=== PATIENT | male | born 1960 | race Caucasian/White ===

== ENCOUNTER 2019-06-26 19:34 | Emergency (ER) | payer BC, SELFPAY ==
[2019-06-26 19:34] VITALS: BP 160/77; PULSE 76; RESP 18; TEMP 37; O2SAT 100; BMI 27.9
[2019-06-26] MEDS: 0.9% Normal Saline 1,000 ML 999 ML IV ×2 (21:01→21:02)
--- NOTE | 2019-06-26 21:10 | ED.VIS.GEN ---
History of Present Illness Chief Complaint: Hyperglycemia Informant: Patient Onset: Today Narrative: Patient checked his sugar today was 566. History of diabetes on metformin 500 mg twice a day. Reported started on prednisone and doxycycline from urgent care 4 days ago unclear on dosing due to nonspecific rash. States he was looking for mushrooms prior to symptoms occurring. Itching therefore went to urgent care. States symptoms are improving. Today noted increasing thirst and urine frequency therefore checked his sugars typically does not check them. No fevers chest pains or difficulty breathing. No history of heart failure. Past Medical History - Allergies and Home Meds Allergies/Adverse Reactions: Allergies Penicillins Allergy (Verified 06/26/19 19:36) Unknown codeine Adverse Reaction (Verified 06/26/19 19:36) Nausea Primary Care Physician: Eric Levy DO [Primary Care Provider] - Past Medical History: - - Diabetes Surgical History: no surgical history Smoking Status: Former smoker Review of Systems General: Denies: Chills, Fever, Sweats Eyes: Denies: Visual changes - bilaterally, Diplopia ENT: Denies: Rhinorrhea, Sore throat Cardiovascular: Denies: Chest pain, Palpitations Respiratory: Denies: Dyspnea, Cough, Dyspnea on exertion Gastrointestinal: Denies: Abdominal pain, Nausea, Vomiting, Diarrhea, Melena, Hematochezia Genitourinary: Reports: Frequency. Denies: Dysuria, Hematuria Musculoskeletal: Denies: Back pain, Extremity Pain Skin: Denies: Rash, Wounds Neurological: Denies: Headache, Weakness, Numbness Endocrine: Reports: Polyuria, Polydipsia Physical Exam Vital Signs/Narrative: Vital Signs Temp Pulse Resp BP Pulse Ox 06/26/19 19:34 98.6 F 76 18 160/77 H 100 Inital Vital Signs reviewed: Yes General: Well nourished, Well developed, No Acute Distress Head: Normocephalic, Atraumatic Eyes: Perrl, EOMI ENT: Moist mucous membranes, No rhinorrhea Neck: Supple, Nontender Cardiovascular: Regular rate, Regular rhythm, No murmurs Respiratory: No distress, CTA bilaterally, Chest nontender Abdomen: Soft, Nontender, Nondistended, Normal bowel sounds Back: Nontender, Normal Inspection Extremities: Nontender, No edema Skin: Normal color, No rash Neurological: Alert, Oriented x3, Cranial nerves II-XII grossly intact, Normal Strength, Normal Sensation Psychological: Normal affect, Normal Mood Diagnostic/Tx/Re-eval Abnormal Lab Results 06/26/19 06/26/19 06/26/19 19:42 19:42 20:21 WBC 8.9 RBC 5.05 Hgb 15.2 Hct 45.6 MCV 90.3 MCH 30.1 MCHC 33.3 RDW Std Deviation 39.7 RDW Coeff of Raul 12.1 Plt Count 263 MPV 11.2 Immature Gran % (Auto) 1.000 H Neut % (Auto) 62.5 Lymph % (Auto) 29.7 [place] % (Auto) 5.3 Eos % (Auto) 0.9 Baso % (Auto) 0.6 Absolute Neuts (auto) 5.6 Absolute Lymphs (auto) 2.65 Nucleated RBC % 0 Sodium 129 L Potassium 4.6 Chloride 91 L Carbon Dioxide 30.0 Anion Gap 8 BUN 38 H Creatinine 1.58 H Estim Creat Clear Calc 52.62 Est GFR (MDRD) Af Amer 58 L Est GFR (MDRD) Non-Af 48 L BUN/Creatinine Ratio 24.1 H Glucose 565 H* Calcium 9.1 Urine Color Urine Clarity Urine pH Ur Specific [place] Urine Protein Urine Glucose (UA) Urine Ketones Urine Occult Blood Urine Nitrite Urine Bilirubin Urine Urobilinogen Ur Leukocyte Esterase Urine RBC Urine WBC Ur Squamous Epith Cells Urine Bacteria Urine Mucus Acetone Level POC Glucose 483 H* 06/26/19 06/26/19 06/26/19 21:00 21:30 22:39 WBC RBC Hgb Hct MCV MCH MCHC RDW Std Deviation RDW Coeff of Raul Plt Count MPV Immature Gran % (Auto) Neut % (Auto) Lymph % (Auto) [place] % (Auto) Eos % (Auto) Baso % (Auto) Absolute Neuts (auto) Absolute Lymphs (auto) Nucleated RBC % Sodium 135 L Potassium 4.4 Chloride 101 Carbon Dioxide 27.0 Anion Gap 7 BUN 32 H Creatinine 1.26 Estim Creat Clear Calc 65.98 Est GFR (MDRD) Af Amer 75 Est GFR (MDRD) Non-Af 62 BUN/Creatinine Ratio 25.4 H Glucose 376 H Calcium 7.7 L Urine Color Yellow Urine Clarity Clear Urine pH 5.0 Ur Specific [place] 1.015 Urine Protein Negative Urine Glucose (UA) 1000 H Urine Ketones 50 H Urine Occult Blood Negative Urine Nitrite Negative Urine Bilirubin Negative Urine Urobilinogen Normal Ur Leukocyte Esterase Negative Urine RBC 0 SEEN Urine WBC 0 SEEN Ur Squamous Epith Cells 0 SEEN Urine Bacteria 0 SEEN Urine Mucus 0 SEEN Acetone Level NEGATIVE POC Glucose - Medical Decision Making Nontoxic. Sugars in the 500s given 2 L of fluid. DKA rule out was negative he was hyperglycemic, was given 10 units of insulin. Recheck glucose in the 370s. He will stop his steroids due to low suspicion for contact dermatitis. He will finish his doxycycline. He will monitor his carb intake, he will check his sugars and follow-up with his PCP. Urine was negative for infection. All questions were answered. ED Disposition - Plan for ED Patient: Disposition: Home or Assisted Living Diagnosis: Hyperglycemia Referrals: Eric Levy, [Primary Care Provider] - 3-5 Days Additional Instructions: Stop your prednisone, monitor your glucose, follow-up with your doctor.
[2019-06-26 21:14] LABS: Absolute Lymphocyte Count 2.65 X10^3/uL (0.83-4.51); Absolute Neutrophil Count 5.6 X10^3/uL (2.0-7.7); Basophil# 0.05 X10^3/uL; Basophil% 0.6 % (0-1); Eosinophil# 0.08 X10^3/uL; Eosinophils% 0.9 % (0-5); Hematocrit 45.6 % (40-54); Hemoglobin 15.2 g/dL (13.0-16.5); Lymphocyte # 2.65 X10^3/ul (4.0); Lymphocyte % 29.7 % (19-41); Mean Corp Hgb Conc 33.3 g/dL (32-36); Mean Corpuscular Hgb 30.1 pg (27.0-32.0); Mean Corpuscular Volume 90.3 fL (80-94); Mean Platelet Vol. 11.2 fl (6.2-12.0); Monocyte# 0.47 X10^3/uL; Monocyte% 5.3 % (0-10); NRBC Flagged by Analyzer 0 % (0-5); Neutrophil # 5.59 X10^3/uL (2.7-7.7); Neutrophil % 62.5 % (47-70); Platelet Count 263 K/mm3 (150-450); RBC Distribution Width CV 12.1 % (11.6-14.6); RBC Distribution Width SD 39.7 fl (35.1-43.9); Red Blood Count 5.05 M/mm3 (4.6-6.2); White Blood Count 8.9 K/mm3 (4.4-11.0)
[2019-06-26 21:16] LABS: Bedside Glucose 483 mg/dL (70-110)
[2019-06-26 21:33] LABS: Anion Gap 8 (5-15); BUN 38 mg/dL (7-18); BUN/Creat Ratio 24.1 RATIO (10-20); Calcium,Total 9.1 mg/dL (8.5-10.1); Chloride 91 mmol/L (98-107); Creatinine, Serum 1.58 mg/dL (0.70-1.30); EST Glomerular Filtration Rate 48 mL/min (>60); Est Glom Filt Rate - Afr Amer 58 mL/min (>60); Estimated Creatinine Clearance 52.62 ml/min; Glucose 565 mg/dL (74-106); Potassium 4.6 mmol/L (3.5-5.1); Sodium Level 129 mmol/L (136-145)
[2019-06-26 21:42] LABS: Bacteria 0 SEEN /hpf (None Seen); Mucous, Urine 0 SEEN /hpf (<or=2+); Red Blood Cells-Urine 0 SEEN /hpf (0-5); Squamous Epithelial Cells - UA 0 SEEN /hpf (0-5); White Blood Cells 0 SEEN /hpf (0-5)
[2019-06-26 21:53] LABS: Color, Urine Yellow (Yellow); Glucose, Dipstick 1000 mg/dl (Normal); Ketone-Dipstick 50 mg/dl (Negative); Leukocyte Esterase-Dipstick Negative /ul (Negative); Nitrite-Dipstick Negative (Negative); Occult Blood-Urine Negative /ul (Negative); Protein-Dipstick Negative (Negative); Specific Gravity, Urine 1.015 (1.002-1.030); Urine Bilirubin Dipstick Negative (Negative); Urine Clarity Clear (Clear); Urine Urobilinogen Normal (Normal)
[2019-06-26] MEDS: Insulin Lispro 100 UNIT/ML INSULN.PEN 10 UNIT SC (22:31)
[2019-06-26 23:01] VITALS: BP 135/94; PULSE 65; RESP 18; O2SAT 98
[2019-06-26 23:07] LABS: Anion Gap 7 (5-15); BUN 32 mg/dL (7-18); BUN/Creat Ratio 25.4 RATIO (10-20); Calcium,Total 7.7 mg/dL (8.5-10.1); Chloride 101 mmol/L (98-107); Creatinine, Serum 1.26 mg/dL (0.70-1.30); EST Glomerular Filtration Rate 62 mL/min (>60); Est Glom Filt Rate - Afr Amer 75 mL/min (>60); Estimated Creatinine Clearance 65.98 ml/min; Glucose 376 mg/dL (74-106); Potassium 4.4 mmol/L (3.5-5.1); Sodium Level 135 mmol/L (136-145)
[2019-06-26 23:20] LABS: Bedside Glucose 339 mg/dL (70-110)
[2019-06-26 23:21] VITALS: PULSE 65; RESP 16; O2SAT 100
== END 2019-06-26 23:21 | disposition home or self-care (01) ==
PROVIDERS: Emergency Provider Emergency Medicine; PCP Student in an Organized Health Care Education/Training Program
DX: E11.65 Type 2 diabetes mellitus with hyperglycemia (principal); Z79.84 Long term (current) use of oral hypoglycemic drugs; Z87.891 Personal history of nicotine dependence
CPT/HCPCS: 80048; 81001; 82009; 82962; 85025; 96360; 96361; 99283; J7030; A4216

== ENCOUNTER 2020-12-25 12:23 | Emergency (ER) | payer BC, SELFPAY ==
[2020-12-25 12:23] VITALS: BP 163/112; PULSE 83; RESP 16; TEMP 36.1; O2SAT 100; BMI 27.4
[2020-12-25 12:36] LABS: Mucous, Urine 0 SEEN /hpf (<or=2+); White Blood Cells 0 SEEN /hpf (0-5)
[2020-12-25 12:57] LABS: Color, Urine Yellow (Yellow); Glucose, Dipstick Normal (Normal); Ketone-Dipstick 5 mg/dl (Negative); Leukocyte Esterase-Dipstick Negative /ul (Negative); Nitrite-Dipstick Negative (Negative); Occult Blood-Urine 250 /ul (Negative); Protein-Dipstick 30 mg/dl (Negative); Specific Gravity, Urine 1.025 (1.002-1.030); Urine Bilirubin Dipstick Negative (Negative); Urine Clarity Sl. Cloudy (Clear); Urine Urobilinogen Normal (Normal)
[2020-12-25 13:03] LABS: Bacteria 1+ /hpf (None Seen); Red Blood Cells-Urine 25-50 SEEN /hpf (0-5); Squamous Epithelial Cells - UA 0-5 SEEN /hpf (0-5)
--- NOTE | 2020-12-25 14:26 | CT_ITS ---
STUDY: CT ABDOMEN AND PELVIS WITHOUT CONTRAST REASON FOR EXAM: Male, 60 years old. Right lower quadrant pain. RADIATION DOSAGE (If Supplied By Facility): CTDIvol = ( 11.32 ) mGy, DLP = ( 582.56 ) mGycm TECHNIQUE: Transaxial images were obtained from the dome of the diaphragm to the symphysis pubis without oral contrast, and without intravenous contrast. Sagittal and coronal images were reconstructed. Individualized dose optimization techniques were used for this CT. COMPARISON: Comparison is made with prior study dated 05/12/2013. FINDINGS: The visualized lung bases are unremarkable. The visualized portions of the heart are within normal limits. There is decreased attenuation of the liver consistent with steatosis. Normal gallbladder and extrahepatic biliary system. Normal spleen. Normal pancreas. Normal bilateral adrenal glands. 2 mm nonobstructive calculus in the lower pole calyx of the right kidney. Mild degree of right hydronephrosis with right perinephric and periureteric stranding. There is evidence of a 4 mm calculus at the base of the bladder posteriorly suggestive of recently passed right ureteral calculus. Normal left kidney. Normal visualized stomach. Normal small intestine. There are multiple colonic diverticula consistent with diverticulosis. The appendix is visualized and appears normal. There is scattered atherosclerotic calcification of the abdominal aorta and its major visceral branches, without a demonstrated aneurysm. Normal inferior vena cava. Normal retroperitoneum. Normal urinary bladder. Normal abdominal wall. There are degenerative changes of the visualized lumbar spine. CT/Abdomen/Pelvis without Cont IMPRESSION: Findings suggestive of recently passed 4 mm calculus from the right ureter. The calculus is seen along the dependent portion of the urinary bladder. Fatty infiltration of the liver. Sigmoid diverticulosis. Electronically Signed: Jameel Cummings MD at 15:23 EST , Service support ,
[2020-12-25] MEDS: 0.9% Normal Saline 1,000 ML 1000 ML IV (14:44)
[2020-12-25] MEDS: Morphine 4 MG/ML Syringe IV (14:44)
[2020-12-25] MEDS: Ondansetron 4 MG/2 ML Vial IV (14:45)
[2020-12-25 14:46] LABS: Absolute Lymphocyte Count 1.26 X10^3/uL (0.83-4.51); Absolute Neutrophil Count 4.8 X10^3/uL (2.0-7.7); Basophil# 0.03 X10^3/uL; Basophil% 0.5 % (0-1); Eosinophil# 0.08 X10^3/uL; Eosinophils% 1.2 % (0-5); Hematocrit 42.2 % (40-54); Hemoglobin 13.9 g/dL (13.0-16.5); Lymphocyte # 1.26 X10^3/ul (0.83-4.51); Lymphocyte % 19.2 % (19-41); Mean Corp Hgb Conc 32.9 g/dL (32-36); Mean Corpuscular Hgb 30.2 pg (27.0-32.0); Mean Corpuscular Volume 91.7 fL (80-94); Mean Platelet Vol. 10.4 fl (6.2-12.0); Monocyte# 0.39 X10^3/uL; Monocyte% 5.9 % (0-10); NRBC Flagged by Analyzer 0 % (0-5); Neutrophil # 4.78 X10^3/uL (2.7-7.7); Neutrophil % 72.9 % (47-70); Platelet Count 187 K/mm3 (150-450); RBC Distribution Width CV 12.8 % (11.6-14.6); RBC Distribution Width SD 42.8 fl (35.1-43.9); White Blood Count 6.6 K/mm3 (4.4-11.0)
[2020-12-25 14:55] LABS: Anion Gap 6 (5-15); BUN 17 mg/dL (7-18); BUN/Creat Ratio 14.3 RATIO (10-20); Calcium,Total 9.1 mg/dL (8.5-10.1); Chloride 104 mmol/L (98-107); Creatinine, Serum 1.19 mg/dL (0.70-1.30); EST Glomerular Filtration Rate 66 mL/min (>60); Est Glom Filt Rate - Afr Amer 80 mL/min (>60); Estimated Creatinine Clearance 70.31 ml/min; Glucose 191 mg/dL (74-106); Potassium 4.3 mmol/L (3.5-5.1); Sodium Level 137 mmol/L (136-145)
--- NOTE | 2020-12-25 15:57 | EX.ED.DYSGE1 ---
HPI History of Present Illness Chief Complaint: Complaint Informant: patient Narrative Narrative: Patient is with right flank pain. It started about 3:00 this morning. He works third shift and he was already awake. He had sudden onset of pain. Occasionally has radiated toward his testicle. He did have some blood in his urine. He has a history of kidney stones. He does not know if he is ever had diverticulitis. He had nausea but no vomiting. No fevers or chills. Nothing specifically made this better or worse. [facility] Medical History (Updated 12/25/20 @ 16:[address] Mg Simpson MD) HTN (hypertension) Kidney stone Home Medications metformin 500 mg PO BIDCM 05/14/13 [History Last Taken Unknown] alprazolam 0.5 mg PO QHS 06/26/19 [History Last Taken Unknown] doxycycline monohydrate 100 mg PO BID 06/26/19 [History Last Taken Unknown] prednisone 20 mg PO DAILY 06/26/19 [History Last Taken Unknown] oxycodone-acetaminophen [Percocet] 1 tab PO Q6H PRN 3 Days #10 tab 12/25/20 [Rx Last Taken Unknown] Allergy/AdvReac Type Severity Reaction Status Date / Time Penicillins Allergy Unknown Verified 12/25/20 12:25 codeine AdvReac Nausea Verified 12/25/20 12:25 Social History Smoking Status: Unknown if ever smoked ROS ROS ED Constitutional Constitutional ED: Denies fever(s) ENT ENT ED: Denies ear pain, rhinorrhea or sore throat Cardiovascular Cardiovascular: Denies chest pain Respiratory/Chest Respiratory/Chest: Denies cough or dyspnea Gastrointestinal Gastrointestinal: Denies abdominal pain, nausea or vomiting Genitourinary Genitourinary ED: Reports hematuria; Denies dysuria Musculoskeletal Musculoskeletal: Reports back pain; Denies arthralgias, myalgias or neck pain Integumentary Denies abscess or rash Neurologic Neurologic: Denies headache(s), paresthesias or weakness Endocrine Endocrinology: Denies polydipsia or polyuria Allergic/Immunologic Allergic/Immunologic ED: Denies urticaria EXAM Physical Exam Const Vital Signs: 12/25/20 12:23 Temperature 97 F L Temperature Source Temporal Pulse Rate 83 Respiratory Rate 16 Blood Pressure 163/112 H Blood Pressure Mean 129 Pulse Ox 100 Oxygen Delivery Method Room Air Patient does uncomfortable. He tends to pace around the room. Positive well nourished and well developed General Appearance ED: well developed and NAD HEENT Negative for trauma Eyes General Eye ED: Negative for pale conjunctiva Neck no JVD Chest Wall inspection of chest normal Resp normal respiratory effort Cardio regular rate and regular rhythm GI normal to inspection, nondistended, normoactive bowel sounds, non-tender and non-distended Palpation: soft Narrative: No testicular enlargement or tenderness. No inguinal hernia. Bladder / Kidney Exam: other Back/Spine Back/Spine Narrative: Mild Right CVA tenderness. General Back: CVA tenderness Extremity normal to inspection Neuro Sensorium / Orientation: alert Psych mental status grossly normal Skin no rashes or lesions noted and no wounds Skin Narrative: No vesicles seen. MDM MDM MDM Narrative Medical decision making narrative: Blood shows normal CBC. Electrolytes are normal other than mild elevation of his glucose. Urine shows red cells but no sign of infection. His CAT scan shows right-sided hydronephrosis with a recently passed stone in the bladder. I rechecked the patient. He feels quite a bit better. I suspect he will still have some intermittent pain. He states he has passed large kidney stones on his own before. I will get him home on a few pills of pain meds. At this point, I do not think Flomax is going to make a difference. I see no indication for antibiotics. If he has worsening pain, inability to urinate, fevers or other concerns he should return. Lab Data Attestation: I reviewed the patient's lab results. Labs: Laboratory Results - last 24 hr 12/25/20 12/25/20 12/25/20 12:30 13:50 13:50 WBC 6.6 RBC 4.60 Hgb 13.9 Hct 42.2 MCV 91.7 MCH 30.2 MCHC 32.9 RDW Std Deviation 42.8 RDW Coeff of Raul 12.8 Plt Count 187 MPV 10.4 Immature Gran % (Auto) 0.300 Neut % (Auto) 72.9 H Lymph % (Auto) 19.2 [place] % (Auto) 5.9 Eos % (Auto) 1.2 Baso % (Auto) 0.5 Absolute Neuts (auto) 4.8 Absolute Lymphs (auto) 1.26 Nucleated RBC % 0 Sodium 137 Potassium 4.3 Chloride 104 Carbon Dioxide 27.0 Anion Gap 6 BUN 17 Creatinine 1.19 Estim Creat Clear Calc 70.31 Est GFR (MDRD) Af Amer 80 Est GFR (MDRD) Non-Af 66 BUN/Creatinine Ratio 14.3 Glucose 191 H Calcium 9.1 Urine Color Yellow Urine Clarity Sl. Cloudy Urine pH 5.0 Ur Specific [place] 1.025 Urine Protein 30 H Urine Glucose (UA) Normal Urine Ketones 5 H Urine Occult Blood 250 H Urine Nitrite Negative Urine Bilirubin Negative Urine Urobilinogen Normal Ur Leukocyte Esterase Negative Urine RBC 25-50 SEEN Urine WBC 0 SEEN Ur Squamous Epith Cells 0-5 SEEN Urine Bacteria 1+ Urine Mucus 0 SEEN Radiography Diagnostic Testing: Clinical Impression(s) from Imaging Studies Abdomen/Pelvis CT 12/25/20 14:26 IMPRESSION: Findings suggestive of recently passed 4 mm calculus from the right ureter. The calculus is seen along the dependent portion of the urinary bladder. Fatty infiltration of the liver. Sigmoid diverticulosis. Electronically Signed: Jameel Cummings MD at 15:23 EST , Service support , Discharge Plan Triage Chief Complaint: Complaint Other Complaint: Abd Pain ED Provider: Mg Simpson Dx/Rx/DC Orders Clinical Impression: Kidney stone on left side Instructions: ED Kidney Stone w/ Colic Prescriptions: New oxycodone-acetaminophen [Percocet] 5-325 mg tablet 1 tab PO Q6H PRN (Reason: pain) 3 Days Qty: 10 RF: 0 No Action metformin 1,000 MG tablet 500 mg PO BIDCM RF: 0 prednisone 20 MG tablet 20 mg PO DAILY RF: 0 alprazolam 0.5 MG tablet 0.5 mg PO QHS RF: 0 doxycycline monohydrate 100 MG capsule 100 mg PO BID RF: 0 Primary Care Provider: Eric Levy Referrals: Eric Levy DO [Primary Care Provider] - Moshe Park MD [STAFF PHYSICIAN] - 1 Week Disposition Disposition: Home, Self Care
[2020-12-25 17:24] VITALS: BP 134/59; PULSE 71; RESP 16; O2SAT 98
== END 2020-12-25 17:26 | disposition home or self-care (01) ==
PROVIDERS: Emergency Provider Emergency Medicine; PCP Student in an Organized Health Care Education/Training Program
DX: N13.2 Hydronephrosis with renal and ureteral calculous obstruction (principal); I10 Essential (primary) hypertension; Z87.442 Personal history of urinary calculi
CPT/HCPCS: 74176; 80048; 81001; 85025; 96361; 96374; 96375; 99283; J7030; A4216; J2405

== ENCOUNTER → 2024-05-08 | Outpatient (CLI) | payer BC, SELFPAY ==
[2024-05-08 11:00] LABS: Absolute Lymphocyte Count 1.36 X10^3/uL (0.83-4.51); Absolute Neutrophil Count 3.7 X10^3/uL (2.0-7.7); Basophil# 0.05 X10^3/uL; Basophil% 0.8 % (0-1); Eosinophil# 0.55 X10^3/uL; Hematocrit 41.8 % (40-54); Hemoglobin 13.7 g/dL (13.0-16.5); Lymphocyte # 1.36 X10^3/ul (0.83-4.51); Lymphocyte % 22.3 % (19-41); Mean Corp Hgb Conc 32.8 g/dL (32-36); Mean Corpuscular Hgb 29.9 pg (27.0-32.0); Mean Corpuscular Volume 91.3 fL (80-94); Mean Platelet Vol. 9.7 fl (6.2-12.0); Monocyte# 0.44 X10^3/uL; Monocyte% 7.2 % (0-10); NRBC Flagged by Analyzer 0 % (0-5); Neutrophil # 3.67 X10^3/uL (2.7-7.7); Neutrophil % 60.2 % (47-70); Platelet Count 222 K/mm3 (150-450); RBC Distribution Width CV 12.9 % (11.6-14.6); RBC Distribution Width SD 42.7 fl (35.1-43.9); Red Blood Count 4.58 M/mm3 (4.6-6.2); White Blood Count 6.1 K/mm3 (4.4-11.0)
[2024-05-08 11:16] LABS: Erythrocyte Sedimentation Rate < 1 mm/hr (0-20)
[2024-05-08 16:34] LABS: CRP < 3.00 mg/L (0.0-3.0)
== END | disposition home or self-care (01) ==
LOC: LAB 10:07
PROVIDERS: PCP Student in an Organized Health Care Education/Training Program; Referring Provider Ophthalmology; Visit Provider Ophthalmology
DX: H47.331 Pseudopapilledema of optic disc, right eye (principal); H53.40 Unspecified visual field defects
CPT/HCPCS: 36415; 85025; 85652; 86140

== ENCOUNTER → 2024-05-23 | Outpatient (CLI) | payer BC, SELFPAY ==
--- NOTE | 2024-05-23 09:32 | CDU_ITS ---
Reason For Study Reason For Study: Pseudopapilledema of optic disc Rt. Velocities/BP Lt. Velocities/BP Prox CCA 74/21.1 cm/sec. Prox CCA 79.6/30.5 cm/sec. Mid CCA 59.8/19.2 cm/sec. Mid CCA 85.3/30.5 cm/sec. Dist CCA 66.4/24.8 cm/sec. Dist CCA 79/31.7 cm/sec. Prox ICA 69.2/30.5 cm/sec. Prox ICA 55.4/16.3 cm/sec. Mid ICA 74.9/29.6 cm/sec. Mid ICA 64.5/22 cm/sec. Dist ICA 64.5/26.7 cm/sec. Dist ICA 49/20.8 cm/sec. Rt. ICA/CCA = 1.25. Lt. ICA/CCA = 0.76. Prox ECA 85.3/21.1 cm/sec. Prox ECA 60.7/18.2 cm/sec. Rt. Vert. 40/13.5 cm/sec. Lt. Vert. 25.1/6.6 cm/sec. Right Extracranial There is homogeneous, smooth atherosclerotic plaque noted in the right common carotid artery. There is heterogeneous, irregular atherosclerotic plaque noted in the right internal carotid artery. There is intimal thickening but no significant atherosclerotic plaque noted in the right external carotid artery. Antegrade flow is noted in the right vertebral artery. Left Extracranial There is homogeneous, smooth atherosclerotic plaque noted in the left common carotid artery. There is heterogeneous, irregular atherosclerotic plaque noted in the left internal carotid artery. There is intimal thickening but no significant atherosclerotic plaque noted in the left external carotid artery. Antegrade flow is noted in the left vertebral artery. Procedure This is a Carotid Duplex examination using B-mode, color flow and specral Doppler. Carotid Duplex [id number]. Exam performed in department. VL/Carotid Duplex Ultrasound Interpretation Summary Mild (<50%) stenosis right extracranial internal carotid. Mild (<50%) stenosis left extracranial internal carotid. Patent and antegrade vertebrals bilaterally. Ordering Physician: Dwayne Vogel Referring Physician: Eric Levy Performed By: Claudia Reyes RVT
== END | disposition home or self-care (01) ==
PROVIDERS: PCP Student in an Organized Health Care Education/Training Program; Referring Provider Ophthalmology; Visit Provider Ophthalmology
DX: H47.331 Pseudopapilledema of optic disc, right eye (principal); H53.40 Unspecified visual field defects
CPT/HCPCS: 93880

== ENCOUNTER → 2024-06-26 | Outpatient (CLI) | payer BC, SELFPAY ==
--- NOTE | 2024-06-26 09:59 | MRI_ITS ---
PROCEDURE: BRAIN W/WO CONTRAST 06/26/2024 REASON FOR EXAM: OPTIC DISC EDEMA RT EYE TECHNIQUE: Routine brain MRI without and with intravenous contrast. Multiplanar and multisequence images were obtained. CONTRAST: 15 cc Clariscan COMPARISON: None FINDINGS: Patient movement on several sequences limits this evaluation. Brain: FLAIR and T2 images demonstrate scattered foci of nonspecific increased signal in the deep and subcortical white matter. No restricted diffusion. There is a circumscribed lesion at the right fossa of Rosenmuller (series 9, image 3) which is slightly hyperintense on both T1 and T2, and does not restrict diffusion or demonstrate enhancement, likely a mucous retention cyst. Ventricles: Consistent with the overall degree of cerebral atrophy. Major Intracranial Vessels: Flow voids are preserved. Sinuses: Predominantly clear. Mastoids: No significant effusion. Orbits: No appreciable optic nerve enhancement or nerve sheath dilation. No orbital mass. Extraocular muscles are symmetric and without enlargement. MRI/Brain W/WO Contrast IMPRESSION: Unremarkable contrast-enhanced MRI of the brain, to include of the orbits. The re is no optic nerve enhancement or evidence of papilledema. No orbital mass. Reading Location: [id number]
== END | disposition home or self-care (01) ==
PROVIDERS: PCP Student in an Organized Health Care Education/Training Program; Referring Provider Ophthalmology; Visit Provider Ophthalmology
DX: H47.331 Pseudopapilledema of optic disc, right eye (principal); H53.40 Unspecified visual field defects
CPT/HCPCS: 70553; A9575